=== PATIENT | male | born 1995 | race Caucasian/White ===

== ENCOUNTER → 2017-03-31 16:17 | Outpatient (CLI) | payer OTHER, SELFPAY ==
[2017-03-31 15:13] VITALS: BP 114/73; BMI 25.0
[2017-03-31 18:27] LABS: ALB/GLOB Ratio 1.2 RATIO (0.9-2.4); AST(SGOT) 27 U/L (15-37); Alanine Aminotransfer ALT/SGPT 32 U/L (16-61); Albumin, Serum 4.3 g/dL (3.2-5.0); Alkaline Phosphatase 143 U/L (45-117); Anion Gap 9 (5-15); BUN 20 mg/dL (7-18); BUN/Creat Ratio 20.1 RATIO (10-20); Calcium,Total 9.1 mg/dL (8.5-10.1); Chloride 102 mmol/L (98-107); EST Glomerular Filtration Rate 101 mL/min (>60); Est Glom Filt Rate - Afr Amer 123 mL/min (>60); Globulin 3.6 g/dL (2.2-4.2); Glucose 98 mg/dL (74-106); Protein, Total 7.9 g/dL (6.4-8.2); Sodium Level 139 mmol/L (136-145)
== END ==
PROVIDERS: Family Provider Internal Medicine; PCP Internal Medicine; Visit Provider Internal Medicine
DX: S36.119A Unspecified injury of liver, initial encounter (principal); X58.XXXA Exposure to other specified factors, initial encounter
CPT/HCPCS: 36415; 80053

== ENCOUNTER → 2017-04-20 13:23 | Outpatient (CLI) | payer OTHER, SELFPAY ==
[2017-04-22 11:43] LABS: Lead, Blood Adult 16+yrs 1 ug/dL (0-19)
== END ==
PROVIDERS: Visit Provider Family Medicine
DX: M79.5 Residual foreign body in soft tissue (principal); W34.00XA Accidental discharge from unspecified firearms or gun, initial encounter
CPT/HCPCS: 36415; 83655